=== PATIENT | female | born 1950 | race Caucasian/White ===

== ENCOUNTER 2020-11-05 19:56 | Emergency (ER) | payer MEDICARE, OTHER ==
[~2020-11-05] VITALS: Ht 154.9 cm; Wt 51.7 kg
[2020-11-05 20:24] VITALS: BP 128/78
--- NOTE | 2020-11-05 20:40 | NUR ---
URINE SAMPLE COLLECTED AND SENT TO LAB
[2020-11-05 20:44] LABS: BILIRUBIN,URINE Negative (NEGATIVE); COLOR,URINE STRAW (YELLOW); LEUKOCYTE ESTERASE ,URINE Small (NEGATIVE); NITRITE, URINE Negative (NEGATIVE); PROTEIN,URINE Negative (NEGATIVE); UGLUCOSE Negative (NEGATIVE); UROBILINOGEN,URINE 0.2 EU/dL (0.2)
[2020-11-05 20:55] LABS: BACTERIA,URINE Few /HPF (None Seen); RBC,URINE 0-2 /HPF (0-2); SQUAMOUS EPITHELIAL CELL,UR Few /HPF (None Seen)
--- NOTE | 2020-11-05 21:07 | NUR ---
AT BED SIDE
[2020-11-05] MEDS ORDERED: NITR100C6 PO (21:13)
== END 2020-11-05 21:40 | disposition home or self-care (01) ==
LOC: ER 20:02
DX: N39.0 Urinary tract infection, site not specified (principal)
CPT/HCPCS: 81001; 87086-TC; 87186-TC